=== PATIENT | male | born 1980 | race Caucasian/White ===

== ENCOUNTER 2025-01-24 17:50 | Observation (INO) | payer SELFPAY ==
[2025-01-24 17:51] VITALS: BP 137/105; PULSE 131; RESP 18; TEMP 36.2; O2SAT 98
--- NOTE | 2025-01-24 18:11 | EDS_ITS ---
HPI History of Present Illness Chief Complaint: ETOH Intox Narrative Narrative: Chief complaint and HPI: 44-year-old male with past medical history of alcohol and substance abuse presents for evaluation for alcohol intoxication and requesting alcohol detox. Patient has been an alcoholic for many years. He currently uses marijuana. States he had polysubstance abuse in the past including Percocet. Patient states he drinks about a gallon of tequila every 2 to 3 days. Last drink was prior to arrival. He has never been to rehab. He does smoke cigarettes. Review of systems: See HPI Medications: As listed on the chart Allergies: As listed on the chart PFSH: Per chart Vital signs: As listed on the chart. Reviewed. Physical exam: Gen: A&O x3 but intoxicated Head: Normocephalic, atraumatic Eyes: No sclera icterus, conjunctiva clear ENT: Moist mucous membranes CV: Tachycardic, regular rhythm, no murmurs, no peripheral edema Resp: Lungs CTA BL, no w/r/c GI: Abd soft, non-distended, non-tender, no r/r/g Musc: Full ROM, no deformity Skin: Warm, dry PFSH PFSH Medical History Tobacco use Polysubstance abuse Alcohol abuse Home Medications ?Medication ?Instructions ?Recorded ?Last Taken ?Type NK 01/24/25 Unknown History Allergy/AdvReac Type Severity Reaction Status Date / Time No Known Allergies Allergy Verified 01/24/25 17:51 Social History Smoking Status: Current every day smoker tobacco type: cigarettes EXAM Physical Exam Const Vital Signs: 01/24/25 17:51 01/24/25 18:48 01/24/25 19:22 Temperature 97.1 F L Temperature Source Temporal Pulse Rate 131 H 98 91 Respiratory Rate 18 20 H 19 H Blood Pressure 137/105 H 140/101 H 135/90 H Blood Pressure Mean 115 114 105 Pulse Ox 98 100 99 Oxygen Delivery Method Room Air Room Air MDM MDM MDM Narrative Medical decision making narrative: 44-year-old male with past medical history of alcohol and substance abuse presents for evaluation for alcohol intoxication and requesting alcohol detox. Last drink was prior to arrival. He has never been to rehab. Differential diagnosis includes was not limited to alcohol intoxication, requesting alcohol detox, electrolyte abnormality, dehydration. Patient placed on CIWA and will be monitored. NS bolus ordered. Laboratory workup ordered for rehab program. Patient requesting a nicotine patch and something for anxiety. Nicotine patch and Ativan ordered. CBC with mild leukocytosis of 11.9. Patient has hemoconcentration of 16.8. CMP shows mild transaminitis of 59 and 60. Likely secondary to patient's alcohol abuse. No GODFREY. Alcohol level 279. Drug screen positive for cannabis. Patient will warrant admission to the rehab program for detox. Hospitalist accepted admission. Patient will be admitted to the program. Impression: 1. Alcohol intoxication 2. Requesting alcohol detox 3. Mild transaminitis 4. Cannabis abuse Lab Data Labs: Laboratory Results - last 24 hr 01/24/25 01/24/25 18:15 19:17 WBC 11.9 H RBC 5.16 Hgb 16.8 H Hct 47.4 MCV 91.9 MCH 32.6 H MCHC 35.4 RDW Std Deviation 40.3 RDW Coeff of Gino 11.9 Plt Count 241 MPV 8.9 Immature Gran % (Auto) 0.400 Neut % (Auto) 75.4 H Lymph % (Auto) 19.2 [place] % (Auto) 4.4 Eos % (Auto) 0.3 Baso % (Auto) 0.3 Absolute Neuts (auto) 8.9 H Absolute Lymphs (auto) 2.27 Nucleated RBC % 0 Sodium 141 Potassium 3.9 Chloride 101 Carbon Dioxide 24.5 Anion Gap 15 BUN 13 Creatinine 0.94 Estim Creat Clear Calc 95.22 Est GFR (MDRD) Non-Af 103 BUN/Creatinine Ratio 14.1 Glucose 194 H Calcium 9.4 Total Bilirubin 0.28 AST 59 H ALT 60 H Alkaline Phosphatase 54 Total Protein 7.9 Albumin 4.8 Globulin 3.1 Albumin/Globulin Ratio 1.5 Urine Opiates Screen NEGATIVE U Buprenorphine Qual NEGATIVE Ur Oxycodone Screen NEGATIVE Urine Methadone Screen NEGATIVE Urine Fentanyl Screen NEGATIVE Ur Barbiturates Screen NEGATIVE Ur Phencyclidine Scrn NEGATIVE Ur Amphetamines Screen NEGATIVE U Benzodiazepines Scrn NEGATIVE Urine Cocaine Screen NEGATIVE U Cannabinoids Screen PRESUMPTIVE POSITIVE Ethyl Alcohol 279.0 H Discharge Plan Triage Chief Complaint: ETOH Intox ED Provider: Clemente Arce Dx/Rx/DC Orders Prescriptions: No Action NK Primary Care Provider: Care Physician,No Primary Referrals: NOT,DEFINED [Non-Staff, None] Print Language: Hungarian
[2025-01-24] MEDS: 0.9% Normal Saline (1000mL) 1,000 ML 1000 ML IV (18:22)
[2025-01-24] MEDS: Nicotine (PBKC) 14 MG Patch TD (18:41)
[2025-01-24 18:44] LABS: AST(SGOT) 59 U/L (<=37); Alanine Aminotransfer ALT/SGPT 60 U/L (<=46); Albumin, Serum 4.8 g/dL (3.5-5.0); Alcohol, Blood (Medical)-Serum 279.0 mg/dL (<=10.0); Alkaline Phosphatase 54 U/L (40-129); Anion Gap 15 (5-15); BUN 13 mg/dL (4-19); BUN/Creat Ratio 14.1 RATIO (10-20); Calcium,Total 9.4 mg/dL (7.6-11.0); Carbon Dioxide 24.5 mmol/L (21.0-32.0); Chloride 101 mmol/L (98-108); Estimated Creatinine Clearance 95.22 ml/min (50-250); Globulin 3.1 g/dL (2.2-4.2); Glucose 194 mg/dL (70-99); Hematocrit 47.4 % (40-54); Hemoglobin 16.8 g/dL (13.0-16.5); Immature Granulocytes Count 0.050 X10^3/uL (0.0-0.0); Mean Corp Hgb Conc 35.4 g/dL (32-36); Mean Corpuscular Volume 91.9 fL (80-94); Mean Platelet Vol. 8.9 fl (6.2-12.0); NRBC Flagged by Analyzer 0 % (0-5); Platelet Count 241 K/mm3 (150-450); Potassium 3.9 mmol/L (3.3-5.1); RBC Distribution Width CV 11.9 % (11.6-14.6); RBC Distribution Width SD 40.3 fl (35.1-43.9); Red Blood Count 5.16 M/mm3 (4.6-6.2); White Blood Count 11.9 K/mm3 (4.4-11.0)
[2025-01-24 18:48] VITALS: BP 140/101; PULSE 98; RESP 20; O2SAT 100
[2025-01-24 19:22] VITALS: BP 135/90; PULSE 91; RESP 19; O2SAT 99
--- NOTE | 2025-01-24 19:25 | ED.RN ---
informed pt that a urine specimen is needed and the pt said,Why don't I just shit in a cup and you can get it from that. Pt's responded to the comment,this nurse did not. Did collect the urine and the pt stated, My piss smells like shit becuase of all the vitamins my mother gives me. The pt's spoke to him.
[2025-01-24 19:52] LABS: Barbiturate Urine NEGATIVE (< 200 ng/mL); Benzodiazepine Urine NEGATIVE (< 200 ng/mL); PCP Urine NEGATIVE (< 25 ng/mL); THC Urine PRESUMPTIVE POSITIVE (< 50 ng/mL)
[2025-01-24 20:00] VITALS: BP 127/91
--- NOTE | 2025-01-24 20:08 | HP.PCM.HOS_ITS ---
HPI - General General Date of Admission: 01/24/25 Date of Service: 01/24/25 Chief Complaint: EtOH detox request. HPI Narrative The patient is a 44 y/o M w/ PMHx: Tobacco use, EtOH abuse (1/2 gallon tequilla daily), Hx Polysubstance abuse (opiates primarily percocet, cannabis reporting clean status) who presents to the [facility] on 01/24/2025 w/ noted intention for alcohol withdrawal state detoxification with last drink prior to ED arrival with onset of acute alcohol withdrawal symptoms including agitation and anxiety. Patient interested in attaining sober status. Patient has never been treated with detoxification previously and has been alcoholic for any years he reports. Workup in the ED included T97.1, heart rate initially 131, BP 137/105, respiratory rate 18, 98% on room air with most recent repeat vitals heart rate 98, BP 140/101, respiratory rate 20, 100% on room air, CBC with WBC 11.9, hemoglobin 16.8, platelet 241 with left shift, CMP with glucose 194, AST/ALT 59/60, ethyl alcohol 279, UDS with presumptive positive cannabis otherwise negative. In the ED patient ministered 1 L normal saline, Ativan 1 mg IV x 1 and nicotine 14 mg transdermal patch. PFSH Medical History Tobacco use Polysubstance abuse Alcohol abuse Home Medications ?Medication ?Instructions ?Recorded ?Last Taken ?Type NK 01/24/25 Unknown History Allergy/AdvReac Type Severity Reaction Status Date / Time No Known Allergies Allergy Verified 01/24/25 17:51 Family History (Updated 01/24/25 @ 21:[address] Alla Moffett MD) Mother Heart disease Diabetes S/P cardiac pacemaker procedure Father No problems noted. Surgical History (Updated 01/24/25 @ 21:[address] Alla Moffett MD) History of jaw surgery History of surgery on lower extremity Social History (Updated 01/24/25 @ 21:[address] Alla Moffett MD) household members: none Smoking Status: Current every day smoker tobacco type: cigarettes Smoking packs per day: 3 Smoking cigarettes per day: 60.0 alcohol intake: current alcohol intake frequency: 3 or more drinks per day Alcohol type: hard liquor details: 1/2 gallon tequilla daily. substance use type: marijuana ROS ROS Narrative Admission Review of Systems: CONSTITUTIONAL: No weight loss, fever, chills, + weakness or fatigue. HEENT: Eyes: No visual loss, blurred vision, double vision or yellow sclerae. Ears, Nose, Throat: No hearing loss, sneezing, congestion, runny nose or sore throat. SKIN: No rash or itching, lesions, wounds. CARDIOVASCULAR: No chest pain, chest pressure or chest discomfort, palpitations, edema, orthopnea, syncopal events. RESPIRATORY: No shortness of breath, cough or sputum, wheezing, hemoptysis. GASTROINTESTINAL: No anorexia, nausea, vomiting or diarrhea, abdominal pain, melena, BRBPR. GENITOURINARY: No dysuria, frequency, urgency or retention. NEUROLOGICAL: + Restless. No headache, dizziness, syncope, paralysis, ataxia, numbness or tingling in the extremities, focal weakness, change in bowel or bladder control, seizure. MUSCULOSKELETAL: + muscle, back pain, joint pain or stiffness. HEMATOLOGIC: No anemia, bleeding or bruising. LYMPHATICS: No enlarged nodes. No history of splenectomy. PSYCHIATRIC: No history of depression or anxiety but + notably restless/anxious upon ED arrival with withdrawal. ENDOCRINOLOGIC: No reports of sweating, cold or heat intolerance. No polyuria or polydipsia. ALLERGIES: No history of asthma, hives, eczema or rhinitis. Vital Signs Vital Signs Vital Signs: 01/24/25 17:51 01/24/25 18:48 01/24/25 19:22 Temperature 97.1 F L Temperature Source Temporal Pulse Rate 131 H 98 91 Respiratory Rate 18 20 H 19 H Blood Pressure 137/105 H 140/101 H 135/90 H Blood Pressure Mean 115 114 105 Pulse Ox 98 100 99 Oxygen Delivery Method Room Air Room Air Weight Weight: 148 lb Body Mass Index (BMI) 20.0 Physical Exam Narrative Physical Examination: General: Awake, alert, oriented x 3 and cooperative, seated upright in ED bed, very boisterous, making several jokes, notes he is anxious and restless but no overt tremors at this time. Skin: Normal color, normal turgor, no icterus, no cyanosis except occasional stage ecchymoses, abrasion, notable stains on his hands from significant tobacco use. HEENT: AT/NC, EOMI, PERRLA, MMM, no carotid bruits or JVD noted. Lungs: Diminished, greater bases, no evidence of any distress, occasional expiratory wheeze. Heart: Regular rate and rhythm; no gallop, rub audible. Abdomen: Soft, thin habitus, NTTP, ND, normal BS, appreciated HM. Extremities: No cyanosis, clubbing, or edema. Neurological: Patient awake, alert, oriented as noted, cognitive function intact; pupils equally reactive to light and accommodation, cranial nerves grossly normal, moving all 4 extremities, no focal deficits, strength preserved, no current tactile disturbances or tremors evident but very restless.. Psychiatric: Affect appears hyperactive, restless, no acute evidence of depressive or anxiety feelings. Results Lab / Micro Data 01/24/25 18:15 01/24/25 18:15 Labs: Laboratory Results - last 24 hr 01/24/25 18:15: WBC 11.9 H, RBC 5.16, Hgb 16.8 H, Hct 47.4, MCV 91.9, MCH 32.6 H , MCHC 35.4, RDW Std Deviation 40.3, RDW Coeff of Gino 11.9, Plt Count 241, MPV 8.9, Immature Gran % (Auto) 0.400, Neut % (Auto) 75.4 H, Lymph % (Auto) 19.2, [place] % (Auto) 4.4, Eos % (Auto) 0.3, Baso % (Auto) 0.3, Absolute Neuts (auto) 8.9 H, Absolute Lymphs (auto) 2.27, Nucleated RBC % 0, Sodium 141, Potassium 3.9, Chloride 101, Carbon Dioxide 24.5, Anion Gap 15, BUN 13, Creatinine 0.94, Estim Creat Clear Calc 95.22, Est GFR (MDRD) Non-Af 103, BUN/Creatinine Ratio 14.1, Glucose 194 H, Calcium 9.4, Total Bilirubin 0.28, AST 59 H, ALT 60 H, Alkaline Phosphatase 54, Total Protein 7.9, Albumin 4.8, Globulin 3.1, Albumin/Globulin Ratio 1.5, Ethyl Alcohol 279.0 H 01/24/25 19:17: Urine Opiates Screen NEGATIVE, U Buprenorphine Qual NEGATIVE, Ur Oxycodone Screen NEGATIVE, Urine Methadone Screen NEGATIVE, Urine Fentanyl Screen NEGATIVE, Ur Barbiturates Screen NEGATIVE, Ur Phencyclidine Scrn NEGATIVE, Ur Amphetamines Screen NEGATIVE, U Benzodiazepines Scrn NEGATIVE, Urine Cocaine Screen NEGATIVE, U Cannabinoids Screen PRESUMPTIVE POSITIVE Assessment & Plan Assessment/Plan (1) Admitted to alcohol detoxification center: PLAN: Plan The patient is a 44 y/o M w/ PMHx: Tobacco use, EtOH abuse (1/2 gallon tequilla daily), Hx Polysubstance abuse (opiates primarily percocet, cannabis reporting clean status) who presents to the [facility] on 01/24/2025 w/ noted intention for alcohol withdrawal state detoxification with last drink prior to ED arrival with onset of acute alcohol withdrawal symptoms including agitation and anxiety. #1. Alcohol abuse with impending acute alcohol withdrawal with chronic alcoholic hepatitis suspected given transaminitis Will admit to [facility], routine labs obtained in the ED upon presentation obtained as noted. Given interest in sobriety, will initiate and continue on protocol with taper course of Phenobarbital, as needed gabapentin, Catapres, Bentyl, Vistaril, IV fluids, IV antiemetics, Tylenol as needed for pain. Will consult Case management for assistance for transition to next level of rehabilitation care. Mag, phos pending. Maintain on CIWA protocol concurrently. #2. Elevated BP without hypertensive diagnosis: BP elevated above goal in the ED, denies any hypertensive history, continue to monitor and add hypertensive regimen if appropriate once withdrawal treatment is initiated and symptoms improved, as needed IV hydralazine in the interim. #3. Hyperglycemia without diabetic history: Admission glucose 194, possibly related with acute alcohol abuse as noted above #1, possible stress response, will obtain hemoglobin A1c to be cautious as high risk for lost to follow-up. #4. Tobacco Abuse: Encouraged cessation, inpatient consultation per RT, NR if desired. #5. History of polysubstance abuse: Patient with previous history of primarily Percocet use as well as occasional cannabis, UDS pending upon request evaluation of patient, encourage clean status. #6. DVT prophylaxis: Low risk for type presentation, encourage ambulation. Charges/Coding Visit Charges Inpatient E&M: 30702 Init Hosp L2
--- NOTE | 2025-01-24 20:15 | CM.ED ---
Social Work Patient admitted to [facility] program for detox from alcohol. Treatment navigator notified of admission. Stacy Novoa, PIGMENT FURNACE TENDER, [employer]
[2025-01-24 20:16] VITALS: BP 127/81; PULSE 98; RESP 24; TEMP 36.7; O2SAT 100
[2025-01-24 20:54] VITALS: BP 154/99; PULSE 93; RESP 18; TEMP 36.2; O2SAT 100
[2025-01-24 20:55] VITALS: BMI 19.7
[2025-01-24 21:10] LABS: Magnesium 1.9 mg/dL (1.5-2.2)
[2025-01-24] MEDS: Nicotine (PBKC) 21 MG Patch TD (21:47)
[2025-01-25 02:04] VITALS: BP 142/78; PULSE 87; RESP 18; TEMP 36.8; O2SAT 97
--- NOTE | 2025-01-25 09:02 | NURSING ---
pt leaving AMA, charge Nurse sue Mcmullen aware
--- NOTE | 2025-01-25 09:04 | NURSING ---
Patient leaving AMA, form signed.
--- NOTE | 2025-01-25 09:27 | DS.PCM_ITS ---
Providers Date of Admission: 01/24/25 Date of Discharge: 01/25/25 Primary Care Physician: No Primary Care Phys Reason For Visit: ETOH DETOX Diagnosis Discharge Diagnosis (1) Admitted to alcohol detoxification center: Status: Acute Plan: Patient was admitted with acute alcohol withdrawal syndrome. He drinks half gallon of tequila every day. He feels good and. When he came in he was tachycardic. He decided to sign AMA and left the building. He was advised against the AMA Acute alcohol withdrawal syndrome with history of chronic alcohol use disorder with dependence and tolerance Medications at Discharge Home Medications NK 01/24/25 Physical Exam Narrative I could not see him in the morning as patient was walking out on the hallway to the elevator Weight / BMI Weight Weight: 145 lb 8.081 oz Body Mass Index (BMI) 19.7 ABG / Lab / Microbiology Data 01/24/25 18:15 01/24/25 18:15 Laboratory: Laboratory Results - last 24 hr 01/24/25 18:15: WBC 11.9 H, RBC 5.16, Hgb 16.8 H, Hct 47.4, MCV 91.9, MCH 32.6 H , MCHC 35.4, RDW Std Deviation 40.3, RDW Coeff of Gino 11.9, Plt Count 241, MPV 8.9, Immature Gran % (Auto) 0.400, Neut % (Auto) 75.4 H, Lymph % (Auto) 19.2, [place] % (Auto) 4.4, Eos % (Auto) 0.3, Baso % (Auto) 0.3, Absolute Neuts (auto) 8.9 H, Absolute Lymphs (auto) 2.27, Nucleated RBC % 0, Sodium 141, Potassium 3.9, Chloride 101, Carbon Dioxide 24.5, Anion Gap 15, BUN 13, Creatinine 0.94, Estim Creat Clear Calc 95.22, Est GFR (MDRD) Non-Af 103, BUN/Creatinine Ratio 14.1, Glucose 194 H, Calcium 9.4, Phosphorus 2.8, Magnesium 1.9, Total Bilirubin 0.28, AST 59 H, ALT 60 H, Alkaline Phosphatase 54, Total Protein 7.9, Albumin 4.8, Globulin 3.1, Albumin/Globulin Ratio 1.5, Ethyl Alcohol 279.0 H 01/24/25 19:17: Urine Opiates Screen NEGATIVE, U Buprenorphine Qual NEGATIVE, Ur Oxycodone Screen NEGATIVE, Urine Methadone Screen NEGATIVE, Urine Fentanyl Screen NEGATIVE, Ur Barbiturates Screen NEGATIVE, Ur Phencyclidine Scrn NEGATIVE, Ur Amphetamines Screen NEGATIVE, U Benzodiazepines Scrn NEGATIVE, Urine Cocaine Screen NEGATIVE, U Cannabinoids Screen PRESUMPTIVE POSITIVE D/C Instructions DC O2, CPAP, BIPAP Needs Home O2 Discharge instructions: No Meaningful Use Info Meaningful Use Meaningful Use Diagnoses (Choose all that apply): None applicable Discharge Plan Admission Admit Date/Time: 01/24/25 20:10 Attending Provider: Jhonny Mcmullen Primary Care Provider: Care Physician,No Primary Consulting Providers: Alla Moffett Discharge Orders/Prescriptions Prescriptions: No Action NK Referrals / Follow Up: Care Physician,No Primary [Primary Care Provider, Medical] NOT,DEFINED [Non-Staff, None] Disposition Disposition (needs filled in before D/C Order can be placed): Against Medical Advice Charges/Coding Visit Charges Inpatient E&M: 74265 Disch Hosp
--- NOTE | 2025-01-25 11:49 | CASEMGMT ---
Social Work- SW attempted to meet pt to provide SP resources if needed. Pt left AMA and was no longer in room. YAIR Vásquez
== END 2025-01-25 09:09 | disposition left against medical advice (07) ==
LOC: ED 18:31 → MS3 01-25 07:35
PROVIDERS: Admitting Provider Family Medicine; Emergency Provider Surgery; Visit Provider Internal Medicine
DX: F10.239 Alcohol dependence with withdrawal, unspecified (principal); F41.9 Anxiety disorder, unspecified; R74.01 Elevation of levels of liver transaminase levels; F17.210 Nicotine dependence, cigarettes, uncomplicated; F12.10 Cannabis abuse, uncomplicated; Y90.8 Blood alcohol level of 240 mg/100 ml or more; R73.9 Hyperglycemia, unspecified; R03.0 Elevated blood-pressure reading, without diagnosis of hypertension
CPT/HCPCS: 80053; 80307; 82077; 83735; 84100; 85025; 96374; 99221; 99285; A4216; G0378